=== PATIENT | female | born 1995 | race Caucasian/White ===

== ENCOUNTER 2024-02-08 07:34 | Emergency (ER) | payer MEDICAID, SELFPAY ==
[2024-02-08 07:35] VITALS: BP 132/90; PULSE 98; RESP 26; TEMP 36.6; O2SAT 98; BMI 37.3
--- NOTE | 2024-02-08 07:49 | EKG12_ITS ---
Test Reason : CP Blood Pressure : */* mmHG Vent. Rate : 87 BPM Atrial Rate : 87 BPM P-R Int : 176 ms QRS Dur : 90 ms QT Int : 380 ms P-R-T Axes : 48 12 17 degrees QTcB Int : 457 ms Normal sinus rhythm Normal ECG Confirmed by RALF TSANG, MAGALY ([id number]), commissioning editor SJ GUILLAUME ([id number]) on 02/09/2024 8:10:30 AM Referred By: Confirmed By: MAGALY ARAMBULA MD
--- NOTE | 2024-02-08 07:50 | EX.ED.DYSGE1 ---
HPI History of Present Illness Chief Complaint: Chest Pain Detail of Chief Complaint: Palpitations, racing heart, chest tightness Informant: patient Narrative Narrative: Patient presents to the emergency department with complaint of palpitations that she has had off-and-on for 2 days. She states at rest her pulse is been anywhere from 90-100 and with walking or activity goes up to 125. Today while at work she was saying goodbye to her coworkers when she started feeling flushed and lightheaded and fell like she was in a pass out. They had her sit down but she did not pass out. She tells me she had a head cold for the last 4 days and had a cough but no fever. She had some congestion. No family history of heart disease or irregular heart rhythms. She denies recent travel or surgery. She is intermittently describes some chest tightness. [facility] Medical History (Updated 02/08/24 @ 12:[address] Augustin Carranza, DO) Bipolar 2 disorder IBS (irritable bowel syndrome) Migraines Physical exam, pre-employment Home Medications ?Medication ?Instructions ?Recorded ?Last Taken ?Type albuterol sulfate 90 mcg/actuation 2 puff inhalation 4X/DAY 02/08/24 Unknown History aerosol inhaler bupropion HCl 150 mg tablet,12 hr 150 mg PO BID 02/08/24 Unknown History sustained-release clonazepam 1 mg tablet 1 mg PO DAILY PRN anxiety 02/08/24 Unknown History lamotrigine 100 mg tablet 100 mg PO DAILY 02/08/24 Unknown History trazodone 50 mg tablet 50 mg PO QHS 02/08/24 Unknown History Allergy/AdvReac Type Severity Reaction Status Date / Time No Known Allergies Allergy Verified 02/08/24 07:35 Surgical History (Updated 02/08/24 @ 07:39 by Irene Mendez) H/O eye surgery Social History Smoking Status: Current some day smoker tobacco type: e-cigarettes ROS ROS ED Review of Systems ROS Unobtainable: other Constitutional Constitutional ED: Reports lethargy; Denies chills, fever(s), sweats or weight loss Eyes Eyes: Denies blurry vision, change in vision or diplopia ENT ENT ED: Denies rhinorrhea or sore throat Cardiovascular Cardiovascular: Reports chest pain, palpitations and racing heartbeat; Denies orthopnea Respiratory/Chest Respiratory/Chest: Reports cough and dyspnea; Denies dyspnea on exertion, orthopnea or sputum Gastrointestinal Gastrointestinal: Denies abdominal pain, diarrhea, nausea or vomiting Genitourinary Genitourinary ED: Denies dysuria, hematuria or urinary frequency Musculoskeletal Musculoskeletal: Denies arthralgias, back pain, myalgias or neck pain Integumentary Denies abscess, Abrasions or rash Neurologic Neurologic: Denies headache(s) or weakness Psychiatric Psychiatric: Denies anxiety, depression or suicidal thoughts Endocrine Endocrinology: Denies polydipsia, polyphagia or polyuria Hematologic/Lymphatic Hematologic/Lymphatic: Denies easy bleeding, easy bruising or lymphadenopathy Allergic/Immunologic Allergic/Immunologic ED: Denies mouth swelling, tongue swelling or urticaria EXAM Physical Exam Const Vital Signs: 02/08/24 07:35 02/08/24 07:38 02/08/24 09:50 Temperature 98 F Temperature Source Oral Pulse Rate 98 Pulse Rate [Lying] 82 Pulse Rate [Sitting (for 1 minute prior to obtaining)] 82 Pulse Rate [Standing (for 1 minute prior to obtaining)] 81 Respiratory Rate 26 H Respiratory Effort Normal Blood Pressure 132/90 H Blood Pressure [Lying] 126/83 H Blood Pressure [Sitting (for 1 minute prior to obtaining)] 138/86 H Blood Pressure [Standing (for 1 minute prior to obtaining)] 127/100 H Blood Pressure Mean 104 Blood Pressure Mean [Lying] 97 Blood Pressure Mean [Sitting (for 1 minute prior to obtaining)] 103 Blood Pressure Mean [Standing (for 1 minute prior to obtaining)] 109 Pulse Ox 98 Oxygen Delivery Method Room Air 02/08/24 09:57 02/08/24 11:00 Temperature Temperature Source Pulse Rate 82 94 Pulse Rate [Lying] Pulse Rate [Sitting (for 1 minute prior to obtaining)] Pulse Rate [Standing (for 1 minute prior to obtaining)] Respiratory Rate 16 15 Respiratory Effort Blood Pressure 126/83 H 125/74 H Blood Pressure [Lying] Blood Pressure [Sitting (for 1 minute prior to obtaining)] Blood Pressure [Standing (for 1 minute prior to obtaining)] Blood Pressure Mean 97 91 Blood Pressure Mean [Lying] Blood Pressure Mean [Sitting (for 1 minute prior to obtaining)] Blood Pressure Mean [Standing (for 1 minute prior to obtaining)] Pulse Ox 100 98 Oxygen Delivery Method Room Air Room Air Positive well nourished and well developed General Appearance ED: well developed and NAD HEENT Reports TM's clear and moist mucous membranes normocephalic and atraumatic; Negative for trauma or tenderness Tympanic Membrane ED: Yes TM's clear Eyes PERRL and EOMs intact bilaterally General Eye ED: Negative for pale conjunctiva or scleral icterus Neck no lymphadenopathy, supple and no JVD General: Negative for tenderness Chest Wall inspection of chest normal and palpation of chest normal Chest: Negative for tenderness Resp normal respiratory effort and clear to auscultation bilaterally Effort and Inspection: Negative for respiratory distress or pain with movement Auscultation: Negative for rhonchi, wheezes or diminished lung sounds Cardio regular rate, regular rhythm, S1 normal heart sound, S2 normal heart sound and no murmurs Peripheral Pulses: pulses 2+ throughout GI normal to inspection, nondistended, normoactive bowel sounds, soft to palpation, non-tender, non-distended and no masses Back/Spine no CVA tenderness and no thoracic nor lumbar tenderness Extremity normal to inspection General Extremety ED: Negative for edema General Extremity: Negative for edema Neuro oriented x3, CN's II-XII intact bilaterally, no sensory deficits noted and gait normal Sensorium / Orientation: awake, alert, oriented to person, oriented to place and oriented to time Motor Exam: strength 5/5 throughout and strength abnormal Psych mental status grossly normal Skin no rashes or lesions noted and no wounds MDM MDM MDM Narrative Medical decision making narrative: Patient presents with episodes of tachycardia and palpitations. Today she felt lightheaded and fell like she might pass out. No significant medical history. EKG obtained arrival showed sinus rhythm with ventricular rate of 87 bpm with no acute ST segment changes. CBC with differential showed a white count of 10.8 with hemoglobin 12.9 platelet count 269. Chemistries were unremarkable. Troponin was normal at less than 3. hCG was negative. TSH was elevated 9.7. Chest x-ray 1 view obtained unremarkable. Patient also had COVID flu and RSV testing that was negative. At this point I suspect hypothyroidism. On exam of the thyroid it does appear she has some slight diffusely in enlarged thyroid that is freely movable with swallowing. Areas nontender Lab Data Attestation: I reviewed the patient's lab results. Labs: Laboratory Results - last 24 hr 02/08/24 07:39 WBC 10.8 RBC 4.68 Hgb 12.9 Hct 39.6 MCV 84.6 MCH 27.6 MCHC 32.6 RDW Std Deviation 41.8 RDW Coeff of Francia 13.5 Plt Count 269 MPV 9.9 Immature Gran % (Auto) 0.300 Neut % (Auto) 57.7 Lymph % (Auto) 30.7 [place] % (Auto) 9.3 Eos % (Auto) 1.8 Baso % (Auto) 0.2 Absolute Neuts (auto) 6.3 Absolute Lymphs (auto) 3.33 Nucleated RBC % 0 D-Dimer Quant (PE/DVT) 0.40 Sodium 136 Potassium 3.6 Chloride 103 Carbon Dioxide 28.0 Anion Gap 6 BUN 21 H Creatinine 0.96 Estim Creat Clear Calc 97.75 Est GFR (MDRD) Af Amer 90 Est GFR (MDRD) Non-Af 74 BUN/Creatinine Ratio 21.8 H Glucose 91 Calcium 9.3 Troponin I High Sens < 3 L TSH 9.740 H Serum , Qual NEGATIVE Radiography Diagnostic Testing: Clinical Impression(s) from Imaging Studies Chest X-Ray 02/08/24 08:00 IMPRESSION: No acute abnormality is seen. Electronically Signed: Christian Cox MD at 8:27 EST , 1 view chest x-ray obtained interpreted by myself as no evidence of infiltrate or pneumothorax or acute disease process. Radiology in agreement. EKG Initial EKG: Attestation: I personally reviewed and interpreted this EKG as follows: Comments: Sinus rhythm with ventricular rate of 87 bpm with no acute ST segment change Discharge Plan Triage Chief Complaint: Chest Pain ED Provider: Augustin Carranaz Dx/Rx/DC Orders Clinical Impression: Heart palpitations, Hypothyroidism Instructions: ED Hypothyroidism, ED Palpitations Prescriptions: No Action lamotrigine 100 mg tablet 100 mg PO DAILY bupropion HCl 150 mg tablet sustained-release 12 hr 150 mg PO BID trazodone 50 mg tablet 50 mg PO QHS clonazepam 1 mg tablet 1 mg PO DAILY PRN (Reason: anxiety) albuterol sulfate 90 mcg/actuation HFA aerosol inhaler 2 puff INHALATION 4X/DAY Primary Care Provider: VILMA RUGGIERO DO Referrals: Care Physician,No Primary [Non-Staff] - Activity Restrictions/Additional Instructions: Follow-up with your primary care physician within next 3 to 5 days. If palpitations persist may need to wear Holter monitor to evaluate further. Print Language: Nigerian Disposition Disposition: Home, Self Care
[2024-02-08] MEDS: 0.9% Normal Saline (1000mL) 1,000 ML 1000 ML IV (07:57)
--- NOTE | 2024-02-08 08:00 | RAD_ITS ---
STUDY: X-RAY CHEST REASON FOR EXAM: Female, 28 years old. Tachycardia, cough TECHNIQUE: Single AP portable view of the chest. COMPARISON: None. FINDINGS: EKG electrodes are seen. The lungs are clear and expanded. There is no demonstrated pleural abnormality. Normal size heart. Normal mediastinum and kinsey. Normal visualized pulmonary arteries. Normal visualized aortic arch and descending thoracic aorta. Normal visualized thoracic spine. Normal visualized ribs, clavicles, and shoulders. Gaseous distention of the stomach. RAD/Chest 1 View (Portable) IMPRESSION: No acute abnormality is seen. Electronically Signed: Christian Cox MD at 8:27 EST ,
[2024-02-08 08:01] LABS: Absolute Lymphocyte Count 3.33 X10^3/uL (0.83-4.51); Absolute Neutrophil Count 6.3 X10^3/uL (2.0-7.7); Basophil# 0.02 X10^3/uL; Basophil% 0.2 % (0-1); Eosinophil# 0.19 X10^3/uL; Eosinophils% 1.8 % (0-5); Hematocrit 39.6 % (37-47); Hemoglobin 12.9 g/dL (12.0-15.0); Lymphocyte # 3.33 X10^3/ul (0.83-4.51); Lymphocyte % 30.7 % (19-41); Mean Corp Hgb Conc 32.6 g/dL (32-36); Mean Corpuscular Hgb 27.6 pg (27.0-32.0); Mean Corpuscular Volume 84.6 fL (81-99); Mean Platelet Vol. 9.9 fl (6.2-12.0); Monocyte# 1.01 X10^3/uL; Monocyte% 9.3 % (0-10); NRBC Flagged by Analyzer 0 % (0-5); Neutrophil # 6.25 X10^3/uL (2.7-7.7); Neutrophil % 57.7 % (47-70); Platelet Count 269 K/mm3 (150-450); RBC Distribution Width CV 13.5 % (11.6-14.6); RBC Distribution Width SD 41.8 fl (35.1-43.9); Red Blood Count 4.68 M/mm3 (4.2-5.4); White Blood Count 10.8 K/mm3 (4.4-11.0)
[2024-02-08 08:24] LABS: Anion Gap 6 (5-15); BUN 21 mg/dL (7-18); BUN/Creat Ratio 21.8 RATIO (10-20); Calcium,Total 9.3 mg/dL (8.5-10.1); Chloride 103 mmol/L (98-107); Creatinine, Serum 0.96 mg/dL (0.55-1.02); EST Glomerular Filtration Rate 74 mL/min (>60); Est Glom Filt Rate - Afr Amer 90 mL/min (>60); Estimated Creatinine Clearance 97.75 ml/min; Glucose 91 mg/dL (74-106); Potassium 3.6 mmol/L (3.5-5.1); Sodium Level 136 mmol/L (136-145); Troponin-I HS < 3 pg/mL (3.0-54.0)
--- NOTE | 2024-02-08 08:53 | ED.RN ---
CALLED LAB ABOUT HCG NADEEN THAT HAS NOT BEEN RECEIVED AT [id number]
[2024-02-08 09:11] LABS: Internal QC Validated? YES +Cl - CLEAR BKGD; Pregnancy, Serum, hCG Quali. NEGATIVE Negative
[2024-02-08 09:50] VITALS: BP 126/83; BP 127/100; BP 138/86; PULSE 81; PULSE 82
[2024-02-08 09:57] VITALS: BP 126/83; PULSE 82; RESP 16; O2SAT 100
[2024-02-08 11:00] VITALS: BP 125/74; PULSE 94; RESP 15; O2SAT 98
[2024-02-08 12:18] VITALS: BP 119/85; PULSE 78; RESP 18; O2SAT 99
== END 2024-02-08 12:18 | disposition home or self-care (01) ==
PROVIDERS: Emergency Provider Emergency Medicine; Visit Provider Emergency Medicine
DX: R00.2 Palpitations (principal); E03.9 Hypothyroidism, unspecified; F17.290 Nicotine dependence, other tobacco product, uncomplicated; Z79.51 Long term (current) use of inhaled steroids; Z79.899 Other long term (current) drug therapy
CPT/HCPCS: 71045; 80048; 84443; 84484; 84703; 85025; 85379; 87631; 93005; 99285